=== PATIENT | female | born 1965 | race Caucasian/White ===

== ENCOUNTER 2017-04-04 10:32 | Emergency (ER) | payer MEDICAID ==
[~2017-04-04] VITALS: Ht 162.6 cm; Wt 57.0 kg
[2017-04-04] MEDS ORDERED: HYDR-519 PO (10:42)
[2017-04-04] MEDS ORDERED: TRAZ300T11 PO (10:42)
[2017-04-04] MEDS ORDERED: CARI350T PO (10:42)
[2017-04-04] MEDS ORDERED: SODIUM CHLORIDE 0.9% 1,000 ML IV ONE (11:13)
[2017-04-04] MEDS ORDERED: NALOXONE HCL 0.4 MG/ML 1ML VIAL IV ONE (11:15)
[2017-04-04 12:13] LABS: BASOPHILS % 0.1 % (0.0-2.0); HEMATOCRIT. 31.7 % (36.0-48.0); HEMOGLOBIN. 10.2 g/dL (12.0-16.0); LYMPHOCYTES % 44.7 % (20.0-50.0); MEAN CORPUSCULAR HEMOGLOBIN 28.8 pg (28.0-32.0); MEAN CORPUSCULAR VOLUME 89.5 fL (81.0-99.0); MEAN PLATELET VOLUME 8.1 fl (7.4-10.4); MONOCYTES % 8.8 % (2.0-8.0); NEUTROPHILS % 46.4 % (40.0-76.0); PLATELET 139 x1000/uL (130-400); RED BLOOD CELL COUNT 3.54 mill/uL (4.2-5.4); RED CELL DISTRIBUTION WIDTH 16.4 % (11.6-14.6)
[2017-04-04 12:18] LABS: CHLORIDE 106 mEq/L (98-107)
[2017-04-04 12:30] LABS: CARBON DIOXIDE 30 mEq/L (21-32); ETHANOL BLOOD < 10 mg/dL
[2017-04-04 13:27] LABS: *AMPHETAMINES SCREEN URINE NEGATIVE (NEGATIVE); *BARBITURATES SCREEN URINE NEGATIVE (NEGATIVE); *BENZODIAZEPINES SCREEN URINE NEGATIVE (NEGATIVE); *COCAINE SCREEN URINE NEGATIVE (NEGATIVE); CANNABINOID URINE SCREEN NEGATIVE (NEGATIVE); METHADONE URINE SCREEN NEGATIVE (NEGATIVE); PHENCYCLIDINE URINE SCREEN NEGATIVE (NEGATIVE)
[2017-04-04 13:36] LABS: OPIATES URINE SCREEN PRESUMTIVE POSITIVE (NEGATIVE)
[2017-04-04 14:10] VITALS: BP 119/96
== END 2017-04-04 14:13 | disposition home or self-care (01) ==
LOC: ER 10:32
DX: R41.82 Altered mental status, unspecified (principal)
CPT/HCPCS: 36415; 80053; 80305; 85025; 96361; 96374; 99284; G0482; J2310; J7030; Z7610

== ENCOUNTER 2018-01-25 16:51 | Emergency (ER) | payer MEDICAID ==
[~2018-01-25] VITALS: Ht 157.5 cm; Wt 55.0 kg
[~2018-01-25 16:51] MED LIST: HYDR-519 PO; S350 PO; TRAZ300T11 PO
[2018-01-25 19:14] VITALS: BP 115/82
== END 2018-01-25 19:16 | disposition home or self-care (01) ==
LOC: ER 18:38
DX: G89.29 Other chronic pain (principal); M54.40 Lumbago with sciatica, unspecified side; M54.2 Cervicalgia
CPT/HCPCS: 99281

== ENCOUNTER 2019-02-06 12:17 | Emergency (ER) | payer MEDICAID, OTHER ==
[~2019-02-06] VITALS: Ht 162.6 cm; Wt 57.0 kg
[~2019-02-06 12:17] MED LIST changes: +CARI-166 PO; -S350 PO
[2019-02-06 13:08] VITALS: BP 138/70
[2019-02-06] MEDS ORDERED: IBUPROFEN 600MG TABLET PO ONE (13:45)
== END 2019-02-06 16:19 | disposition home or self-care (01) ==
LOC: ER 12:17
DX: S80.02XA Contusion of left knee, initial encounter (principal); S80.212A Abrasion, left knee, initial encounter; R56.9 Unspecified convulsions; M54.30 Sciatica, unspecified side; W01.0XXA Fall on same level from slipping, tripping and stumbling without subsequent striking against object, initial encounter; Y93.9 Activity, unspecified; Y92.9 Unspecified place or not applicable; Z98.890 Other specified postprocedural states
CPT/HCPCS: 73562; 99283

== ENCOUNTER 2021-08-26 16:27 | Emergency (ER) | payer MEDICAID, OTHER ==
[~2021-08-26] VITALS: Ht 157.5 cm; Wt 60.0 kg
[~2021-08-26 16:27] MED LIST changes: -CARI-166 PO; +CARI350T28 PO
[2021-08-26] MEDS ORDERED: IBUPROFEN 400MG TABLET PO ONE (20:45)
[2021-08-26] MEDS ORDERED: AMOXICILLIN/POTASSIUM CLAVULANATE 875/125MG TAB PO ONE (20:45)
[2021-08-26] MEDS ORDERED: TETANUS, DIPHTHERIA, PERTUSSIS VAC/PF 0.5ML (>10YR OLD) IM ONE (21:15)
[2021-08-26] MEDS ORDERED: AMOX-424 MT (23:16)
[2021-08-27] VITALS: BP 111/62
== END 2021-08-27 01:01 | disposition home or self-care (01) ==
LOC: ER 16:27
DX: S61.051A Open bite of right thumb without damage to nail, initial encounter (principal); W55.01XA Bitten by cat, initial encounter; Y93.9 Activity, unspecified; Y92.9 Unspecified place or not applicable; R56.9 Unspecified convulsions; F32.9 Major depressive disorder, single episode, unspecified; M54.30 Sciatica, unspecified side; F43.10 Post-traumatic stress disorder, unspecified; Z91.018 Allergy to other foods; Z91.041 Radiographic dye allergy status; Z98.890 Other specified postprocedural states
CPT/HCPCS: 73140; 99283